=== PATIENT | female | born 1965 | race Caucasian/White ===

== ENCOUNTER → 2024-01-11 14:30 | Outpatient (BNVA) | payer MEDICAID, SELFPAY | PROVIDERS: Visit Provider Nurse Practitioner | DX: M25.512 Pain in left shoulder (principal); I89.8 Other specified noninfective disorders of lymphatic vessels and lymph nodes | CPT/HCPCS: 73030 ==

== ENCOUNTER → 2024-01-13 13:06 | Outpatient (BNVA) | payer MEDICAID, SELFPAY | PROVIDERS: PCP Family Medicine; Visit Provider Nurse Practitioner | DX: M16.0 Bilateral primary osteoarthritis of hip (principal) | CPT/HCPCS: 73523 ==

== ENCOUNTER → 2024-01-14 14:04 | Outpatient (BNVA) | payer MEDICAID, SELFPAY | PROVIDERS: PCP Family Medicine; Visit Provider Orthopaedic Surgery | DX: M54.9 Dorsalgia, unspecified (principal) | CPT/HCPCS: 72110 ==

== ENCOUNTER → 2024-01-25 14:29 | Outpatient (BNVA) | payer MEDICAID, SELFPAY | PROVIDERS: Visit Provider Nurse Practitioner | DX: M16.11 Unilateral primary osteoarthritis, right hip (principal) | CPT/HCPCS: 99214 ==

== ENCOUNTER 2024-01-26 06:30 | Outpatient (RCR) | payer MEDICAID, SELFPAY | END 2024-02-24 23:59 | disposition home or self-care (01) | LOC: MPT 06:30 | PROVIDERS: Visit Provider Orthopaedic Surgery | DX: M54.9 Dorsalgia, unspecified (principal); G89.29 Other chronic pain | CPT/HCPCS: 97110; 97161; 97530 ==

== ENCOUNTER 2024-02-08 14:13 | Outpatient (CLI) | payer MEDICAID, SELFPAY ==
--- NOTE | 2024-02-08 14:30 | MR_ITS ---
WS: [id number] MRI LUMBAR SPINE NONCONTRAST TECHNIQUE: Sagittal T1, T2 and STIR imaging. Axial T1 and T2 imaging. CLINICAL INFORMATION: lumbar pain COMPARISON: None. FINDINGS: Mild lumbar curve. No acute compression. No high-grade central canal stenosis. Disc bulging worse at L3-4. L1-L2: Mild disc bulging with slight effacement of the ventral thecal sac. Mild facet arthropathy. Fo ramen are patent. L2-L3: Mild annular bulging. Slight narrowing RIGHT subarticular recess. Mild facet arthropathy. Fora men are patent. L3-L4: Slight retrolisthesis. Central disc protrusion with mild to moderate central canal stenosis. I mpingement traversing L4 nerve roots. Moderate facet arthropathy with ligamentum flavum hypertrophy. Mild LEFT greater than RIGHT foraminal narrowing. Mild facet synovitis. L4-L5: Mild annular bulging. Slight narrowing of the subarticular recess bilaterally. Foramen are pat ent. Moderate facet arthropathy. Mild facet synovitis. L5-S1: Mild disc bulge with endplate ridging. Moderate facet arthropathy. Mild to moderate LEFT and n o significant RIGHT foraminal narrowing. Visualized pelvic bony structures: Normal. Paravertebral soft tissues: Normal. MR/MR lumbar spine wo con* [id number] IMPRESSION: 1. Mild lumbar curve. No acute compression. 2. Disc bulge with a shallow central protrusion and mild to moderate central c anal stenosis at L3-4. Impingement subarticular recess bilaterally. Mild LEFT L 3-4 foraminal narrowing. 3. Annular bulging L4-5 with slight impingement on the LEFT greater than RIGHT subarticular recess and traversing L4 nerve roots. 4. Mild to moderate LEFT L5-S1 bony foraminal narrowing. 5. Moderate facet arthropathy with facet synovitis L3-L4 and L4-L5.
== END 2024-02-08 14:14 | disposition home or self-care (01) ==
LOC: RAD 14:14
PROVIDERS: PCP Family Medicine; Visit Provider Orthopaedic Surgery
DX: M51.362 Other intervertebral disc degeneration, lumbar region with discogenic back pain and lower extremity pain (principal); M54.16 Radiculopathy, lumbar region; M99.61 Osseous and subluxation stenosis of intervertebral foramina of cervical region; M47.896 Other spondylosis, lumbar region
CPT/HCPCS: 72148

== ENCOUNTER 2024-02-08 15:07 | Outpatient (CLI) | payer MEDICAID, SELFPAY ==
[2024-02-08 15:41] LABS: Bilirubin Urine Negative (Negative); Blood Urine Negative (Negative); Glucose Urine UA Negative (Normal); Ketones Urine Negative (Negative); Leukocyte Esterase Urine Negative (Negative); Nitrate Urine Negative (Negative); Protein Urine Negative (Negative); Specific Gravity, Urine 1.006 (1.005-1.030); Urine Appearance Clear (CLEAR); Urine Color Yellow (Yellow); pH Urine 6.5 (5-7)
[2024-02-08 15:42] LABS: Basophils # 0.1 10^3/uL (0.0-0.1); Basophils % 0.6 %; Eosinophils # 0.1 10^3/uL (0.0-0.8); Eosinophils % 1.5 %; Hematocrit 41.6 % (36-47); Lymphocytes # 3.3 10^3/uL (0.8-4.8); Lymphocytes % 42.7 %; Mean Corpuscular HGB Conc 33.2 g/dL (30-55); Mean Corpuscular Hemoglobin 31.2 pg (27-33); Mean Corpuscular Volume 94.1 fl (85-98); Monocytes # 0.4 10^3/uL (0.2-0.9); Monocytes % 5.7 %; Neutrophils # 3.81 10^3/uL (1.8-7.7); Neutrophils % 49.1 %; Nucleated Red Blood Cells % 0 %; Platelet Count 241 10^3/cmm (157-399); Red Blood Count 4.42 10^6/uL (3.85-5.65); Red Cell Distribution Width 14.8 % (12.1-15.1); White Blood Count 7.76 10^3/uL (3.29-11.43)
[2024-02-08 15:47] LABS: Add Urine Microscopic? YES; Bacteria Urine None Seen /hpf; Hyaline Casts Urine 0-4 /lpf; RBC Urine 0-2 /hpf (0-2); Squamous Epithelial Cell Urine 0-5 /hpf (0-5); WBC Urine 0-5 /hpf (0-5)
[2024-02-08 16:27] LABS: Alanine Aminotransferase 11 U/L (0-33); Alkaline Phosphatase 111 U/L (35-105); Anion Gap 12.8 (5-19); Aspartate Amino Transferase 12 U/L (0-32); Blood Urea Nitrogen 8 mg/dL (6-20); Calcium 8.8 mg/dL (8.5-10.5); Carbon Dioxide 26 mmol/L (22-29); Chloride 104 mmol/L (98-107); Glomerular Filtration Rate 73.9 mL/min (90-130); Glucose 81 mg/dL (65-115); Osmolality Calculated 285 mOsm/kg (285-295); Potassium 3.8 mmol/L (3.5-5.1); Sodium 139 mmol/L (136-145); Total Bilirubin 0.3 mg/dL (0.15-1.2)
== END 2024-02-08 15:08 | disposition home or self-care (01) ==
LOC: LAB 15:09
PROVIDERS: PCP Family Medicine; Visit Provider Nurse Practitioner
DX: Z01.818 Encounter for other preprocedural examination (principal); M16.0 Bilateral primary osteoarthritis of hip
CPT/HCPCS: 36415; 80053; 81001; 85025

== ENCOUNTER → 2024-02-23 15:30 | Outpatient (BNVA) | payer MEDICAID, SELFPAY | PROVIDERS: PCP Family Medicine; Visit Provider Orthopaedic Surgery | DX: Z09 Encounter for follow-up examination after completed treatment for conditions other than malignant neoplasm (principal); M54.2 Cervicalgia; M54.50 Low back pain, unspecified | CPT/HCPCS: 72050; 99214 ==

== ENCOUNTER 2024-02-25 12:46 | Observation (INO) | payer MEDICAID, SELFPAY ==
[2024-02-25] VITALS (15 sets, daily range): BP systolic 115–147; BP diastolic 67–93; PULSE 75–103; RESP 13–18; TEMP 36.3–37.1; O2SAT 93–97; BMI 29.0
[2024-02-25] MEDS: sodium chloride 0.9% 1,000 ML 30 ML IV (11:20)
[2024-02-25] MEDS: acetaminophen 1,000 MG/100 ML PIGGYBACK 400 MG IV ×2 (11:20→18:06)
[2024-02-25] MEDS: CELEcoxib 200 mg Capsule 400 MG PO (11:23)
[2024-02-25] MEDS: gabapentin 300 mg Capsule PO (11:23)
--- NOTE | 2024-02-25 12:59 | ANES.PREANE2 ---
Pre-Anesthetic Assessment Height/Weight: Height 5 ft 6 in Weight 180 lb Temp Pulse Resp BP Pulse Ox O2 Del Method 98.7 F 103 H 16 119/84 97 Room Air 02/25/24 10:55 02/25/24 10:58 02/25/24 10:58 02/25/24 10:58 02/25/24 10:58 02/25/24 10:58 Preop Diagnosis: Hip arthritis Operation Date: 02/25/24 12:15 Proposed Procedures p Total Hip Arthroplasty(Right) - Gali Marks MD Was Beta Micheline taken within 24 hours: N/A Was Clonidine taken within 24 hours: N/A Last intake: Intake Last Liquid Date 02/25/24 Last Liquid Time 23:00 Last Solid Date 02/24/24 Last Solid Time 21:00 Social No alcohol and No tobacco Quit smoking 2-3 weeks ago Exam alert, oriented x 3, clear to auscultation bilaterally and regular rate & rhythm Airway Submandibular: within normal limits Cervical ROM: within normal limits Mallampati: Class III Dentition: other (Edentulous) Anesthetic Plan ASA status: 3 Anesthesia: General Other: No prior issues with anesthesia NPO since yesterday Prior smoker, quit 2-3 weeks ago. Uses chronic inhalers Takes CBD Gummies Labs 02/08/2024 reviewed acceptable for procedure Chronic low back issues. States she has spinal stenosis Plan for general anesthesia Medications/Allergies Home Medications Medication Instructions Recorded Confirmed Last Taken Type albuterol sulfate 90 mcg/actuation 2 puff inhalation Q6H PRN Wheezing 01/11/24 02/24/24 Unknown History aerosol inhaler celecoxib 200 mg capsule (Celebrex) 200 mg PO BID 01/11/24 02/24/24 02/17/24 History gabapentin 100 mg capsule 100 mg PO TID 01/11/24 02/24/24 02/24/24 History topiramate 100 mg capsule,extended 100 mg PO DAILY 01/11/24 02/24/24 Unknown History release 24 hr tramadol 50 mg tablet 100 mg PO Q8H PRN Pain 01/11/24 02/24/24 02/24/24 History venlafaxine 75 mg capsule,extended 75 mg PO DAILY 01/11/24 02/24/24 02/23/24 History release 24 hr cbd gummies 10 mg PO PRN PRN Pain 02/15/24 02/24/24 02/23/24 History methocarbamol 500 mg tablet 500 mg PO QID PRN Pain 02/15/24 02/24/24 02/24/24 History Allergies Allergy/AdvReac Type Severity Reaction Status Date / Time No Known Allergies Allergy Verified 02/24/24 09:00 Current Medications Generic Name Dose Route Start Last Admin Trade Name Freq PRN Reason Stop Dose Admin Sodium Chloride 1,000 mls @ 30 mls/hr 02/25/24 11:00 02/25/24 11:20 Sodium Chloride 0.9% IV 02/26/24 10:59 30 mls/hr .Q24H ALBERTO Administration PFSH Anesthesia Medical History Primary osteoarthritis of right hip Bilateral primary osteoarthritis of hip Primary osteoarthritis, left shoulder Social History Smoking and tobacco/nicotine status: current every day tobacco/nicotine user Data Anesthesia Cardiac Studies: No Data to Display
--- NOTE | 2024-02-25 13:39 | W.PM.OPSUD ---
Surgery/Procedure H&P Update DATE OF PROCEDURE: February 25, 2024 DATE H&P PERFORMED: 02/15/24 H&P UPDATE INFORMATION: I have reviewed H&P completed within last 30 days, I have examined patient prior to procedure, No changes to prior documentation and H&P is in [facility] EMR on date indicated PREOP DIAGNOSIS: Primary osteoarthritis right hip PLANNED PROCEDURE: Operation Date: 02/25/24 12:15 Proposed Procedures p Total Hip Arthroplasty(Right) - Gali Marks MD Related Problem List Diagnoses (1) Primary osteoarthritis of right hip:
[2024-02-25] MEDS: ceFAZolin 2,000 mg SDV 2000 MG IVP ×2 (13:55→21:51)
[2024-02-25] MEDS: tranexamic acid 1,000 mg/10mL SDV 1000 MG IV (14:18)
[2024-02-25] MEDS: ceFAZolin 1,000 mg SDV 1000 MG IRRIGATION (14:54)
[2024-02-25] MEDS: vancomycin 1,000 MG SDV 1000 MG XX (14:56)
--- NOTE | 2024-02-25 17:01 | P.OP_ITS ---
Operative Report Date of procedure: February 25, 2024 Pre-op diagnosis: Primary osteoarthritis right hip Post-op diagnosis: Primary osteoarthritis right hip Post-op findings: Severe degenerative osteoarthritis with large osteophytes on the femoral neck and also on the acetabulum Procedure done: Right total hip arthroplasty Implants: The Onur total hip system with a size 52 mm by E alpha code Trident II Tritanium acetabular shell with an MDM liner size 52 mm inner diameter by E alpha code.? A size 6 Accolade II 127? neck angle hip stem with a size 28 mm x +0 mm femoral head and a yazidism MDM X3 insert size 28 mm x 42E Specimens removed/disposition: Bone, disposed of Pathology: None Surgeon: Gali Marks MD Student Development Coordinator: Billie Sam, nurse practitioner, who services were required for positioning, exposure, manipulation, retraction, and closure Anesthesia: General (Intubated, ASA 3) Estimated blood loss (mL): 150 IV fluids (mL): 1,500 Urine output (mL): 200 Complications: None Findings: Large osteophytes both of the acetabulum and femoral head and neck with the significant deformity of the femoral head and loss of cartilage. The hip was stable to toe hang and external rotation. It was also stable to flexion of 90 degrees with internal rotation of 70 degrees and adduction of 30 degrees. Condition: stable Disposition: PACU (Then to floor for postoperative rehabilitation and pain management) Brief History: This 58-year-old woman presented to the office with complaints of bilateral hip pain. The patient is also being worked up for her lumbar spine, and she is seeing Dr. Mancia for this. She is having significant groin pain and limitations in activities of daily living secondary to her hip pain and functionality of the hip. For this reason, discussion was undertaken with the patient in the office. She wished to proceed with total hip arthroplasty as conservative measures had failed. Risks and complications were discussed with her. Consents were signed. Of note, the patient had previously been scheduled for total hip arthroplasty in [facility], but they advised her that not only which she have to quit smoking but her would as well. She wishes to proceed and has quit smoking at this time. Procedure: Patient was brought to the operating theater.? She was transferred to the operating room table and subsequently administered a general anesthesia, intubated, ASA 3.? Following administration of adequate anesthesia, the patient was placed in full lateral position and held in position with a pegboard.? The patient's right lower extremity was then prepped and draped in usual fashion utilizing DuraPrep.? It was draped free.? Following prepping and draping, a surgical pause was performed.? At the time of surgical pause, we identified the site and side of surgery.? We also identified the patient and preoperative surgical markings.?The patient's operative leg was compared to the opposite leg as a length comparison.? Confirmation was made of equipment availability.? Additionally, the patient's preoperative IV antibiotic, Ancef 2 g, and TXA administration was confirmed as well.? X-rays were also reviewed. Following the surgical pause, an incision was made centering over the patient's greater trochanter continuing proximally and distally as necessary to allow access to the hip joint.? Dissection continued through skin and soft tissues using a scalpel, and hemostasis was obtained using electrocautery. The tensor fascia yariel was identified and incised longitudinally.? Sciatic nerve was identified and protected throughout the surgical procedure.? A Charnley U retractor was placed after the tensor fascia yariel had been incised longitudinally, and the sciatic nerve had been identified.? The hip was internally rotated, and the piriformis muscle was identified and tagged. Piriformis muscle along with the remaining short external rotators were then incised from the posterior aspect of the hip joint.? These were retracted posteriorly.? The capsule was entered in a T-type fashion with the edges being tagged, and subsequently the hip was dislocated after removal of osteophytes posteriorly, inferiorly, and from the femoral head. The labrum was excised with further excision accomplished once the femoral head was removed.? Following hip dislocation, a femoral neck osteotomy was accomplished in the appropriate position.? The head was measured, but it was quite deformed.? We then evaluated the acetabulum. There were noted to be large osteophytes on the rim of the a cetabulum and also along the femoral neck. The femur was retracted anteriorly.? Soft tissues were retracted, and the labrum was removed.? Osteotome was utilized to remove very large osteophytes poste riorly and inferiorly as well as anteriorly. We then began reaming.? Once the femoral head was removed, there was noted to be significant loss of cartilage over the head with the previously noted deformity and cartilage loss within the acetabulum.? We reamed to a size 51 to allow for a size 52 acetabular shell. The acetabulum was impacted into position.? The MDM liner was then impacted into position with care being taken to assure it seated appropriately. It was noted that the acetabulum matched the bony anatomy following osteophyte removal.? The cup was noted to seat nicely and had good fixation upon impact. Attention was directed to the proximal femur.? The proximal femur was lifted out of the wound.? A canal finder was passed after the box chisel.? The reamer was used to lateralize.? We then began broaching. We broached sequentially and had excellent fit and fill with the size 6 broach. The 6 broach was noted to seat nicely. A trial reduction was accomplished with this initially with a size 5 broach, but once reduced, the broach was evaluated and felt to be loose within the femoral canal slightly. Therefore, we increased to a size 6 broach. Trial was accomplished with a +0 mm offset femoral head gave us the stability noted above, and leg lengths were felt to be equal. With the final construct as noted, we had the above-noted stabilities and appropriate leg length. Therefore, trial components were removed after the hip was dislocated. The size 6 Accolade II 127? neck angle stem was impacted into position without difficulty and onto this was placed a +0 mm x 28 mm femoral head which had been assembled into the MDM insert size 42E.? With a +0 mm femoral head, we had the above-noted stability.? The stem was noted to seat nicely prior to placement of the femoral head.? The wound was copiously irrigated with 20 mL of Betadine and 500 mL of normal saline mixed together.? Subsequently, we suctioned this out and irrigated the wound copiously with lactated Ringer's.? At this time, with all components in appropriate position, the hip was reduced.? Following reduction of the prosthesis once again, we confirmed the stability of the hip.? Leg lengths were also felt to be satisfactory. Being satisfied with the prosthesis, attention was directed to closure.? Closure was accomplished with 0 Vicryl in the capsular tissues.? Piriformis was reattached with 0 Vicryl as well.? Tensor fascia yariel was closed with 0 Vicryl in an interrupted fashion.? The subcutaneous tissues were closed with combination of 0 Vicryl and 2-0 Monocryl.? Vancomycin powder and a Gelfoam thrombin mixture was placed into the wound as well.? The skin was closed with a running 3-0 Monocryl strata fix followed by Dermabond Rachelle and Mattie. The patient was placed in an abduction pillow.? Patient was transferred off the operative bed and was brought to the recovery room in a satisfactory condition. She will be discharged to the floor for postoperative rehabilitation and pain management. There were no complications and no specimens. Related Problem List Diagnoses (1) Primary osteoarthritis of right hip:
--- NOTE | 2024-02-25 17:08 | XRR_ITS ---
PROCEDURE INFORMATION: Exam: XR Pelvis Exam date and time: 02/25/2024 5:36 PM Age: 58 years old Clinical indication: Screening exam; Post op right total hip arthroplasty; Prior surgery; Surgery date: Post-operative (0-2 days); Additional info: Status post right total hip arthroplasty, low ap pelvis TECHNIQUE: Imaging protocol: Radiologic exam of the pelvis. Views: 1 or 2 view. COMPARISON: CR XR hip BI m 5V wo/w pel* [id number] 01/13/2024 1:14 PM FINDINGS: Bones/joints: Patient has had a an interval right total hip arthroplasty. Hardware is well positioned. No acute fracture. No dislocation. Air in the right hip joint space, likely postsurgical in nature. Stable moderate degenerative changes at the left hip. Stable mild degenerative changes at the sacroiliac joints and degenerative changes of the lower lumbar spine. Soft tissues: Air in the soft tissues surrounding the right hip joint space, likely postsurgical in nature. No radiopaque foreign body. Intraperitoneal space: Redemonstration of a curvilinear radiopaque focus in the pelvis of uncertain etiology. Vasculature: Multiple calcifications in the pelvis most likely representing calcified phleboliths. XR/XR pelvis 1-2V* [id number] IMPRESSION: 1. Status post right total hip arthroplasty without evidence for complication. 2. Air in the right hip joint space and surrounding soft tissues, likely postsurgical in nature. 3. Redemonstration of a curvilinear radiopaque focus in the pelvis of uncertain etiology. 4. Incidental/nonacute findings are listed in the report.
--- NOTE | 2024-02-25 17:18 | SUR.PHASEI ---
1714 Bilat SCDs connected to pump and pump on and working
--- NOTE | 2024-02-25 17:52 | SUR.PHASEI ---
1745 Pt taken to room 258 on second floor. Handed pt off to Marian Tariq RN. VSS Pt temp 99.4 temporal. Marian looked at dressing which remained c/d/i. Marian accepted pt and voiced no concerns.
[2024-02-25] MEDS: TRAMadol 50 mg Tablet 100 MG PO (18:04)
[2024-02-25] MEDS: CELEcoxib 200 mg Capsule PO (18:04)
[2024-02-25] MEDS: calcium carbonate 500 mg Chew Tablet 1000 MG PO (18:06)
[2024-02-25] MEDS: sennosides-docusate Tablet 2 TAB PO (18:06)
[2024-02-25] MEDS: iron polysaccharide complex 150 mg Capsule PO (18:06)
[2024-02-25] MEDS: mupirocin oint 22 gm 1 APPLIC NASAL (18:06)
[2024-02-25] MEDS: sodium chloride 0.9% 1,000 ML 100 ML IV (18:07)
[2024-02-25] MEDS: chlorhexidine gluconate 0.12% Btl 473 mL 30 ML MUCOUS MEM (20:46)
[2024-02-25] MEDS: gabapentin 100 mg Capsule PO (20:46)
[2024-02-25] MEDS: tranexamic acid 1,000 MG/100 ML PREMIX 600 MG IV (21:51)
[2024-02-25] MEDS: oxyCODONE 5 mg IR Tab/Cap PO (21:57)
[2024-02-26] VITALS: BP 108/69; PULSE 96; RESP 19; TEMP 37; O2SAT 97
[2024-02-26] MEDS: acetaminophen 1,000 MG/100 ML PIGGYBACK 400 MG IV ×2 (00:52→11:54)
[2024-02-26] MEDS: TRAMadol 50 mg Tablet 100 MG PO ×2 (00:52→08:14)
[2024-02-26] MEDS: sodium chloride 0.9% 1,000 ML 100 ML IV (03:59)
[2024-02-26 05:33] LABS: Basophils % 0.2 %; Hematocrit 35.4 % (36-47); Lymphocytes # 2.7 10^3/uL (0.8-4.8); Lymphocytes % 21.7 %; Mean Corpuscular HGB Conc 32.2 g/dL (30-55); Mean Corpuscular Hemoglobin 30.8 pg (27-33); Mean Corpuscular Volume 95.7 fl (85-98); Mean Platelet Volume 9.4 fL (7.4-10.4); Monocytes # 0.7 10^3/uL (0.2-0.9); Monocytes % 6.1 %; Neutrophils # 8.73 10^3/uL (1.8-7.7); Neutrophils % 71.6 %; Nucleated Red Blood Cells % 0 %; Platelet Count 235 10^3/cmm (157-399); Red Cell Distribution Width 14.6 % (12.1-15.1); White Blood Count 12.19 10^3/uL (3.29-11.43)
[2024-02-26 05:53] LABS: Anion Gap 14.2 (5-19); Blood Urea Nitrogen 8 mg/dL (6-20); Carbon Dioxide 23 mmol/L (22-29); Chloride 107 mmol/L (98-107); Creatinine Clr Calc Pharmacy 99.1776; Glomerular Filtration Rate 86.2 mL/min (90-130); Glucose 107 mg/dL (65-115); Osmolality Calculated 289 mOsm/kg (285-295); Potassium 4.2 mmol/L (3.5-5.1); Sodium 140 mmol/L (136-145)
[2024-02-26] MEDS: ceFAZolin 2,000 mg SDV 2000 MG IVP (05:59)
[2024-02-26 08:00] VITALS: BP 122/78; PULSE 92; RESP 18; TEMP 36.8; O2SAT 92
[2024-02-26] MEDS: gabapentin 100 mg Capsule PO (08:14)
[2024-02-26] MEDS: sennosides-docusate Tablet 2 TAB PO (08:14)
[2024-02-26] MEDS: cholecalciferol (vitamin D3) 1,000 unit Tablet 1000 UNIT PO (08:14)
[2024-02-26] MEDS: iron polysaccharide complex 150 mg Capsule PO (08:15)
[2024-02-26] MEDS: methocarbamol 500 mg Tablet PO (08:15)
[2024-02-26] MEDS: aspirin 325 mg EC Tablet PO (08:16)
[2024-02-26] MEDS: multivitamin therapeutic Tablet 1 TAB PO (08:16)
[2024-02-26] MEDS: venlafaxine ER (24HR) 75 mg Capsule PO (08:16)
[2024-02-26] MEDS: chlorhexidine gluconate 0.12% Btl 473 mL 30 ML MUCOUS MEM ×2 (08:16→13:38)
[2024-02-26] MEDS: CELEcoxib 200 mg Capsule PO (08:16)
--- NOTE | 2024-02-26 08:34 | PC.NURSE ---
patient given tramadol for a pain level of 8/10 for postop hip pain
[2024-02-26 11:47] VITALS: BP 113/73; PULSE 103; RESP 18; TEMP 36.7; O2SAT 94
[2024-02-26] MEDS: mupirocin oint 22 gm 1 APPLIC NASAL (11:55)
[2024-02-26 11:59] VITALS: RESP 18
[2024-02-26] MEDS: oxyCODONE 5 mg IR Tab/Cap PO (11:59)
--- NOTE | 2024-02-26 12:58 | PC.CHAP ---
Pastoral Care Encounter/Spiritual Assessment Type of Contact [] Declined domain architect visit [] Patient/Family/Request visit [] Outpatient visit [] Follow-up visit [] Physician referral [] Code/Alert [x] Routine visit [] Staff referral [] Actively dying [] Patient sleeping [] Family support [] [] Out of room [] Palliative care [] [] Receiving care in room [] Pre-surgical visit [] Trauma [] Long length of stay [] ICU visit [] Other: Relational/Emotional Strength [x] Patient feels connected with others/family/visitors/staff [] Distress [] Loneliness/isolation [] Abandonment Spirituality of Patient [x] Person of [place] [x] Attends [employer] of their [place] [x] Believes in Prayer [x] Reads Bible or Buddhist materials [] There are Spiritual issues to be addressed Bushwalking Guide Interventions [x] Prayer [x] Active listening [x] Non-anxious presence [x] Spiritual/emotional support [] Crisis/trauma care [] Spiritual counseling [] Bereavement support [] Provided bereavement packet [] Provided Bible/devotional materials [] Provided toy/stuffed animal, coloring book to patient or family member [] Provided Communion [] Anointing/[place] [] Salvation [] Completed spiritual assessment [] Other: Impact on Illness or Injury [] Angry [] Fearful [] Anxious [] Often cries [] Exhaustion [] Unable to work [] Unable to attend mu-ism [] Unable to walk/stand [] Unable to read [] Unable to drive [] Unable to eat/drink [] Unable to sleep [] Unable to be with family [] Patient intubated [] Other: Summary Vol. FF P+1 Time spent with patient 1hr
--- NOTE | 2024-02-26 14:54 | P.DS_ITS ---
Discharge Providers Date of Admission: 02/25/24 12:46 Date of Discharge: February 26, 2024 Attending Provider at Admission: Gali Marks MD Attending Provider at Discharge: Gali Marks MD Primary Care Provider: Ricardo Aly DO Diagnoses at Discharge Discharge Diagnosis (1) Primary osteoarthritis of right hip: Status: Chronic (2) History of total left hip arthroplasty: Status: Acute Permanent problem details: Date of procedure: February 25, 2024 Diagnosis: Primary osteoarthritis right hip Procedure done: Right total hip arthroplasty Implants: The [place] total hip system with a size 52 mm by E alpha code Trident II Tritanium acetabular shell with an MDM liner size 52 mm inner diameter by E alpha code. A size 6 Accolade II 127? neck angle hip stem with a size 28 mm x +0 mm femoral head and a sikh MDM X3 insert size 28 mm x 42E Reason for Visit Reason for Visit: M16.0 Brief History: This 58-year-old woman presented to the office with complaints of bilateral hip pain. The patient is also being worked up for her lumbar spine, and she is seeing Dr. Mancia for this. She is having significant groin pain and limitations in activities of daily living secondary to her hip pain and functionality of the hip. For this reason, discussion was undertaken with the patient in the office. She wished to proceed with total hip arthroplasty as conservative measures had failed. Risks and complications were discussed with her. Consents were signed. Of note, the patient had previously been scheduled for total hip arthroplasty in [facility], but they advised her that not only which she have to quit smoking but her would as well. She wishes to proceed and has quit smoking at this time. Hospital Course Hospital Course This 58-year-old woman was admitted following total hip arthroplasty. She did well with the procedure and did well postoperatively. On the first postoperative day, she had no evidence of DVT. She was working with physical therapy and was felt to be safe for discharge to home. Plans were made for this. Questions were answered. The patient was comfortable and therefore was discharged home to follow-up in the office as scheduled. Physical Exam Const: COMMON NORMALS: no acute distress, average body habitus, patient oriented x3 and alert GENERAL APPEARANCE: cooperative and comfortable ORIENTATION/CONSCIOUSNESS: Yes awake HENMT: COMMON NORMALS: normocephalic and atraumatic HEAD & SCALP: normocephalic and atraumatic Eye: GENERAL EYE: appearance normal, both eyes and all related structures Chest: COMMONS NORMALS: normal inspection of the chest Resp: COMMON NORMALS: normal respiratory effort EFFORT & INSPECTION: Yes able to speak in complete sentences and Yes symmetric chest movement Extremity: RIGHT LOWER EXTREMITY: Yes hip joint (Dressing dry and intact) Right hip: Yes inspection (No significant ecchymosis), Yes ROM (Not evaluated) and Yes neurovascular exam (Intact with no evidence of DVT) Neuro: COMMON NORMALS: patient oriented x3 SENSORIUM/ORIENTATION: Yes alert Psych: COMMON NORMALS: mental status grossly normal APPEARANCE: Yes grossly normal ATTITUDE: Yes calm and Yes engaged ATTENTION/CONCENTRATION: Yes attention grossly intact Skin: COMMON NORMALS: no rashes or lesions noted GENERAL SKIN EXAM: no rashes or lesions noted Urinary Catheter Management: Escobar: Cath Placed During This Visit: yes, but has since been removed by the nurse Reason for Continuing Indwelling Catheter: Perioperative Use in Selected Surgeries Urinary Catheter Date of Insertion: 02/25/24 Urinary Catheter Time of Insertion: 14:10 Date Urinary Catheter Removed: 02/26/24 Time Urinary Catheter Discontinued: 06:21 Discharge Data Studies Completed and Pending Completed Studies During Hospitalization Category Date Time Status XR pelvis 1-2V* [id number] Routine Exams 02/25/24 17:08 Completed Radiology Impressions Pelvis X-Ray 02/25/24 17:08 IMPRESSION: 1. Status post right total hip arthroplasty without evidence for complication. 2. Air in the right hip joint space and surrounding soft tissues, likely postsurgical in nature. 3. Redemonstration of a curvilinear radiopaque focus in the pelvis of uncertain etiology. 4. Incidental/nonacute findings are listed in the report. Laboratory Results WBC 12.19 10^3/uL (3.29-11.43) H 02/26/24 05:05 RBC 3.70 10^6/uL (3.85-5.65) L 02/26/24 05:05 Hgb 11.40 g/dL (11.27-16.99) 02/26/24 05:05 Hct 35.4 % (36-47) L 02/26/24 05:05 MCV 95.7 fl (85-98) 02/26/24 05:05 MCH 30.8 pg (27-33) 02/26/24 05:05 MCHC 32.2 g/dL (30-55) 02/26/24 05:05 RDW 14.6 % (12.1-15.1) 02/26/24 05:05 Plt Count 235 10^3/cmm (157-399) 02/26/24 05:05 MPV 9.4 fL (7.4-10.4) 02/26/24 05:05 Neut % (Auto) 71.6 % 02/26/24 05:05 Lymph % (Auto) 21.7 % 02/26/24 05:05 Fountain % (Auto) 6.1 % 02/26/24 05:05 Eos % (Auto) 0.0 % 02/26/24 05:05 Baso % (Auto) 0.2 % 02/26/24 05:05 Neut # (Auto) 8.73 10^3/uL (1.8-7.7) H 02/26/24 05:05 Lymph # (Auto) 2.7 10^3/uL (0.8-4.8) 02/26/24 05:05 Fountain # (Auto) 0.7 10^3/uL (0.2-0.9) 02/26/24 05:05 Eos # (Auto) 0.0 10^3/uL (0.0-0.8) 02/26/24 05:05 Baso # (Auto) 0.0 10^3/uL (0.0-0.1) 02/26/24 05:05 Nucleated RBC % (auto) 0 % 02/26/24 05:05 Nucleated RBCs # 0.0 /100WBC 02/26/24 05:05 Sodium 140 mmol/L (136-145) 02/26/24 05:05 Potassium 4.2 mmol/L (3.5-5.1) 02/26/24 05:05 Chloride 107 mmol/L (98-107) 02/26/24 05:05 Carbon Dioxide 23 mmol/L (22-29) 02/26/24 05:05 Anion Gap 14.2 (5-19) 02/26/24 05:05 BUN 8 mg/dL (6-20) 02/26/24 05:05 Creatinine 0.7 mg/dL (0.5-0.9) 02/26/24 05:05 GFR Calculation 86.2 mL/min (90-130) L 02/26/24 05:05 Glucose 107 mg/dL (65-115) 02/26/24 05:05 Calculated Osmolality 289 mOsm/kg (285-295) 02/26/24 05:05 Calcium 8.0 mg/dL (8.5-10.5) L 02/26/24 05:05 Vitals Last Vital Signs Temp 98.1 F 02/26/24 11:47 Pulse 103 H 02/26/24 11:47 Resp 18 02/26/24 11:59 BP 113/73 02/26/24 11:47 Pulse Ox 94 02/26/24 11:47 O2 Del Method Room Air 02/26/24 11:47 Discharge Plan Discharge Patient Disposition: Home Condition: Stable Prescriptions: New acetaminophen 500 mg Tablet 1,000 mg PO Q8H 15 Days Qty: 90 0RF aspirin 325 mg Tablet,Delayed Release (Dr/Ec) 325 mg PO DAILY 30 Days Qty: 30 0RF tramadol 50 mg tablet 50 - 100 mg PO Q8H PRN (Reason: pain) Qty: 60 0RF tramadol 50 mg Tablet 100 mg PO Q8H PRN (Reason: Pain) 7 Days Qty: 60 0RF Continued topiramate 100 mg capsule,extended release 24hr 100 mg PO DAILY venlafaxine 75 mg capsule,extended release 24hr 75 mg PO DAILY gabapentin 100 mg capsule 100 mg PO TID albuterol sulfate 90 mcg/actuation HFA aerosol inhaler 2 puff inhalation Q6H PRN (Reason: Wheezing) cbd gummies 10 mg PO PRN PRN (Reason: Pain) methocarbamol 500 mg tablet 500 mg PO QID PRN (Reason: Pain) Changed celecoxib [Celebrex] 200 mg capsule 200 mg PO 1XD 30 Days Qty: 30 0RF Discontinued tramadol 50 mg tablet 100 mg PO Q8H PRN (Reason: Pain) Discharge Orders: Discharge Order (Routine); Ordered 02/26/24 Ordered By: Gali Marks Other Ambulatory Orders: DME: [facility] (Order) Location: None Selected Ordered By: Gali Marks Referrals: Gali Marks MD [Physician] - (We have notified your physician's clinic of the need for a follow-up appointment to be scheduled. If you have not heard from them within the next 2 business days, please call them directly. ) Discharge Diet: Advance as tolerated and Usual diet Discharge Activity: Limit activity as instructed, Use walker/crutches as instructed and As per PT/OT instructions Patient Instructions: Tramadol (By mouth) (Ultram, Ultram ER, [place], Theratramadol-60, Qdolo), Celecoxib (By mouth), Acute Wound Care (DC), Precautions after Total Joint Replacement Surgery (DC), Opioid Safety, Post Anesthesia Care Activity Restrictions/Additional Instructions: Posterior hip precautions. You may weight-bear as tolerated. Do the home exercise program as instructed by physical therapy. Keep your wound covered with a dressing that is in place now unless it begins to leak at which time it may be removed. You may shower, but do not soak your hip in water such as a bathtub, pool, river, or chance. Discharge Attestations Time Spent in Discharge Care*: greater than 30 min Specific Discharge Activities: educating patient, educating and/or supporting family/caregiver, documenting/other paperwork and evaluating patient/reviewing data Quality Metrics Clinical Quality Measures [ No reported AMI, CVA or VTE this stay] Coding Level of Care Code Acute Code for Chg Fwd Diagnoses Primary osteoarthritis of right hip M16.11 History of total left hip arthroplasty Z96.642
[2024-02-26 15:26] VITALS: BP 101/67; PULSE 90; RESP 18; TEMP 36.8; O2SAT 93
[2024-02-26 16:16] VITALS: BP 111/79; PULSE 81; RESP 19; TEMP 36.8; O2SAT 95
== END 2024-02-26 13:51 | disposition home or self-care (01) ==
LOC: MEDSURG 12:46
PROVIDERS: Admitting Provider Specialist; PCP Family Medicine; Visit Provider Specialist
PROC: (CPT 27130; principal; 2024-02-25 12:15)
DX: M16.11 Unilateral primary osteoarthritis, right hip (principal); F17.200 Nicotine dependence, unspecified, uncomplicated
CPT/HCPCS: 27130; 51702; 72170; 80048; 85025; 97116; 97161; 97165; 97530; C1776; G0378; J0131; J0690; J1100; J1171; J2250; J2405; J2704; J2710; J3010; J3370; J3490; J7030

== ENCOUNTER → 2024-03-09 14:11 | Outpatient (BNVA) | payer MEDICAID, SELFPAY | PROVIDERS: PCP Family Medicine; Visit Provider Specialist | DX: M16.11 Unilateral primary osteoarthritis, right hip (principal); Z96.641 Presence of right artificial hip joint | CPT/HCPCS: 73502; 99024 ==

== ENCOUNTER → 2024-05-04 09:00 | Outpatient (BNVA) | payer MEDICAID, SELFPAY | PROVIDERS: PCP Family Medicine; Visit Provider Anesthesiology Pain Medicine | DX: M47.816 Spondylosis without myelopathy or radiculopathy, lumbar region | CPT/HCPCS: 99204 ==

== ENCOUNTER → 2024-05-18 11:00 | Outpatient (BNVA) | payer MEDICAID, SELFPAY | PROVIDERS: PCP Family Medicine; Visit Provider Anesthesiology Pain Medicine | DX: M47.816 Spondylosis without myelopathy or radiculopathy, lumbar region (principal) | CPT/HCPCS: 64493; 64494; 64495; J3490 ==

== ENCOUNTER → 2024-05-31 09:39 | Outpatient (BNVA) | payer MEDICAID, SELFPAY | PROVIDERS: PCP Family Medicine; Visit Provider Anesthesiology Pain Medicine | DX: M47.816 Spondylosis without myelopathy or radiculopathy, lumbar region (principal) | CPT/HCPCS: 99214 ==

== ENCOUNTER → 2024-06-22 10:41 | Outpatient (BNVA) | payer MEDICAID, SELFPAY | PROVIDERS: PCP Family Medicine; Visit Provider Specialist | DX: Z98.890 Other specified postprocedural states (principal); Z96.641 Presence of right artificial hip joint; M47.816 Spondylosis without myelopathy or radiculopathy, lumbar region | CPT/HCPCS: 64635; 64636; 73502; 99213; J1010 ==

== ENCOUNTER → 2024-07-06 10:59 | Outpatient (BNVA) | payer MEDICAID, SELFPAY | PROVIDERS: PCP Family Medicine; Visit Provider Anesthesiology Pain Medicine | DX: M47.816 Spondylosis without myelopathy or radiculopathy, lumbar region (principal); M54.9 Dorsalgia, unspecified | CPT/HCPCS: 64635; 64636; J1010 ==

== ENCOUNTER → 2024-07-13 13:49 | Outpatient (BNVA) | payer MEDICAID, SELFPAY | PROVIDERS: PCP Family Medicine; Visit Provider Specialist | DX: M16.12 Unilateral primary osteoarthritis, left hip (principal) | CPT/HCPCS: 73502; 99214 ==

== ENCOUNTER → 2024-07-25 13:54 | Outpatient (BNVA) | payer MEDICAID, SELFPAY | PROVIDERS: PCP Family Medicine; Visit Provider Anesthesiology Pain Medicine | DX: M54.9 Dorsalgia, unspecified (principal); M47.816 Spondylosis without myelopathy or radiculopathy, lumbar region | CPT/HCPCS: 99214 ==

== ENCOUNTER 2024-07-25 14:31 | Outpatient (CLI) | payer MEDICAID, SELFPAY ==
[2024-07-25 15:40] LABS: Basophils # 0.1 10^3/uL (0.0-0.1); Basophils % 0.4 %; Eosinophils # 0.3 10^3/uL (0.0-0.8); Eosinophils % 2.5 %; Hematocrit 42.8 % (36-47); Lymphocytes # 4.6 10^3/uL (0.8-4.8); Lymphocytes % 38.6 %; Mean Corpuscular HGB Conc 32.2 g/dL (30-55); Mean Corpuscular Hemoglobin 29.1 pg (27-33); Mean Corpuscular Volume 90.3 fl (85-98); Mean Platelet Volume 9.2 fL (7.4-10.4); Monocytes # 0.9 10^3/uL (0.2-0.9); Monocytes % 7.2 %; Neutrophils # 6.02 10^3/uL (1.8-7.7); Neutrophils % 50.9 %; Nucleated Red Blood Cells % 0 %; Platelet Count 285 10^3/cmm (157-399); Red Blood Count 4.74 10^6/uL (3.85-5.65); Red Cell Distribution Width 15.6 % (12.1-15.1); White Blood Count 11.85 10^3/uL (3.29-11.43)
[2024-07-25 15:48] LABS: Add Urine Microscopic? YES; Bacteria Urine None Seen /hpf; Bilirubin Urine Neg (Negative); Blood Urine Trace (Negative); Glucose Urine UA Norm (Normal); Hyaline Casts Urine 0-4 /lpf; Ketones Urine Negative (Negative); Leukocyte Esterase Urine Trace (Negative); Nitrate Urine Negative (Negative); Protein Urine Neg (Negative); RBC Urine 0-2 /hpf (0-2); Squamous Epithelial Cell Urine 0-5 /hpf (0-5); Urine Appearance Clear (CLEAR); Urine Color Yellow (Yellow); Urobilinogen Urine Norm (Negative); WBC Urine 0-5 /hpf (0-5); pH Urine 5 (5-7)
[2024-07-25 15:49] LABS: Add Urine Culture? No
[2024-07-25 16:12] LABS: Alanine Aminotransferase 11 U/L (0-33); Albumin Level 3.9 g/dL (3.5-5.2); Alkaline Phosphatase 117 U/L (35-105); Anion Gap 14.9 (5-19); Aspartate Amino Transferase 13 U/L (0-32); Blood Urea Nitrogen 13 mg/dL (6-20); Calcium 9.3 mg/dL (8.5-10.5); Carbon Dioxide 27 mmol/L (22-29); Chloride 99 mmol/L (98-107); Globulin 3.2 g/dL (1.3-4.6); Glomerular Filtration Rate 85.9 mL/min (90-130); Glucose 114 mg/dL (65-115); Osmolality Calculated 285 mOsm/kg (285-295); Potassium 3.9 mmol/L (3.5-5.1); Sodium 137 mmol/L (136-145); Total Bilirubin 0.2 mg/dL (0.15-1.2); Total Protein 7.1 g/dL (6.6-8.7)
== END 2024-07-25 14:32 | disposition home or self-care (01) ==
LOC: LAB 14:32
PROVIDERS: PCP Family Medicine; Visit Provider Specialist
DX: Z01.818 Encounter for other preprocedural examination (principal)
CPT/HCPCS: 36415; 80053; 81001; 85025

== ENCOUNTER → 2024-08-22 12:32 | Outpatient (BNVA) | payer MEDICAID, SELFPAY | PROVIDERS: PCP Family Medicine; Visit Provider Family Medicine | DX: Z01.818 Encounter for other preprocedural examination (principal) | CPT/HCPCS: 80053; 81003; 85025 ==

== ENCOUNTER 2024-08-25 10:24 | Observation (INO) | payer MEDICAID, SELFPAY ==
[2024-08-25] VITALS (21 sets, daily range): BP systolic 110–132; BP diastolic 59–97; PULSE 77–100; RESP 13–18; TEMP 36.1–37.2; O2SAT 90–99; BMI 30.2
[2024-08-25] MEDS: sodium chloride 0.9% 1,000 ML 30 ML IV (06:27)
[2024-08-25] MEDS: acetaminophen 1,000 MG/100 ML PIGGYBACK 400 MG IV ×3 (06:28→22:28)
[2024-08-25] MEDS: gabapentin 300 mg Capsule PO (06:30)
[2024-08-25] MEDS: CELEcoxib 200 mg Capsule 400 MG PO (06:30)
[2024-08-25] MEDS: ceFAZolin 2,000 mg SDV 2000 MG IVP ×3 (06:58→22:28)
--- NOTE | 2024-08-25 06:58 | P.HPUD_ITS ---
Surgery/Procedure H&P Update DATE OF PROCEDURE: August 25, 2024 DATE H&P PERFORMED: 08/22/24 H&P UPDATE INFORMATION: I have reviewed H&P completed within last 30 days, I have examined patient prior to procedure, No changes to prior documentation, H&P is in [facility] EMR on date indicated and Risks and benefits of the procedure reviewed PLANNED PROCEDURE: Operation Date: 08/25/24 07:00 Proposed Procedures p Total Hip Arthroplasty(Left) - Gali Marks MD Related Problem List Diagnoses (1) Primary osteoarthritis of left hip:
--- NOTE | 2024-08-25 07:03 | ANES.PREANE2 ---
Pre-Anesthetic Assessment Height/Weight: Height 1.68 m Weight 84.822 kg Temp Pulse Resp BP Pulse Ox O2 Del Method 98.1 F 100 16 132/85 94 Room Air 08/25/24 05:59 08/25/24 05:59 08/25/24 05:59 08/25/24 05:59 08/25/24 05:59 08/25/24 06:06 Operation Date: 08/25/24 07:00 Proposed Procedures p Total Hip Arthroplasty(Left) - Gali Marks MD Familial anesthetic complications: None Was Beta Micheline taken within 24 hours: N/A Was Clonidine taken within 24 hours: N/A Last intake: Intake Last Liquid Date 08/24/24 Last Liquid Time 23:30 Last Solid Date 08/24/24 Last Solid Time 21:00 Social Tobacco and No alcohol CBD gummies Exam alert, oriented x 3, clear to auscultation bilaterally and regular rate & rhythm Airway Mallampati: Class II Dentition: other (no teeth) Musc/skel Lower Back Pain Anesthetic Plan ASA status: 2 Anesthesia: Regional (specify below) Risk of > 500 ml blood loss (7ml/kg in children): No Medications/Allergies Home Medications ?Medication ?Instructions ?Recorded ?Confirmed ?Last Taken ?Type albuterol sulfate 90 mcg/actuation 2 puff inhalation Q6H PRN Wheezing 01/11/24 08/24/24 07/18/24 History aerosol inhaler gabapentin 100 mg capsule 100 mg PO TID 01/11/24 08/24/24 08/23/24 History venlafaxine 75 mg capsule,extended 75 mg PO DAILY 01/11/24 08/24/24 08/23/24 History release 24 hr cbd gummies 10 mg PO PRN PRN Pain 02/15/24 08/22/24 02/23/24 History celecoxib 200 mg capsule (Celebrex) 200 mg PO 1XD 30 days #30 caps 02/26/24 08/24/24 08/17/24 Rx tramadol 50 mg tablet 50 - 100 mg (1 - 2 x 50 mg) PO Q8H 02/26/24 08/25/24 08/25/24 Rx PRN pain #60 tabs acetaminophen 500 mg tablet 500 mg PO Q6H PRN Mild Pain (Scale 08/22/24 08/24/24 08/24/24 History (Tylenol Extra Strength) Score 1-4) ibuprofen 200 mg capsule 400 mg PO Q6H PRN Pain, Mild 08/22/24 08/24/24 08/15/24 History Allergies Allergy/AdvReac Type Severity Reaction Status Date / Time No Known Allergies Allergy Verified 08/25/24 06:00 Current Medications Generic Name Dose Route Start Last Admin Trade Name Freq PRN Reason Stop Dose Admin Sodium Chloride 1,000 mls @ 30 mls/hr 08/25/24 06:00 08/25/24 06:27 Sodium Chloride 0.9% IV 08/26/24 05:59 30 mls/hr .Q24H ALBERTO Administration PFSH Anesthesia Medical History Primary osteoarthritis of right hip Bilateral primary osteoarthritis of hip Primary osteoarthritis, left shoulder Social History Smoking and tobacco/nicotine status: current every day tobacco/nicotine user
[2024-08-25] MEDS: tranexamic acid 1,000 mg/10mL SDV 1000 MG IV (07:39)
[2024-08-25] MEDS: VANCOMYCIN ADD-Vantage 1,000 MG VIAL 1000 MG XX (07:53)
[2024-08-25] MEDS: ceFAZolin 1,000 mg SDV 1000 MG IRRIGATION (07:54)
[2024-08-25] MEDS: BUPivacaine 0.5% INJ 10 mL 20 ML INJECTION (08:00)
[2024-08-25] MEDS: BUPivacaine liposome 13.3 mg/mL SDV 20 mL 266 MG INJECTION (08:00)
--- NOTE | 2024-08-25 10:22 | XR_ITS ---
WS: [id number] Pelvis, AP view, 08/25/2024 Clinical Data: Status post total hip arthroplasty Comparison: Pelvis and left hip, 07/13/2024 Findings: Bilateral hip arthroplasties are present. No periprosthetic fractures or loosening is seen. There is radiopaque material overlying the right pubic symphysis. There is a small suture in the pelvis. XR/XR pelvis 1-2V* [id number] Impression: Bilateral hip arthroplasties.
--- NOTE | 2024-08-25 10:25 | P.OP_ITS ---
Operative Report Date of procedure: August 25, 2024 Pre-op diagnosis: Primary osteoarthritis left hip Post-op diagnosis: Primary osteoarthritis left hip with calcar fracture during surgery Post-op findings: Severe degenerative osteoarthritis with large osteophytes and complete denudement of cartilage. Deformity of the femoral head. Procedure done: Left total hip arthroplasty with placement of Dall-Miles beaded cable and sleeve, cerclage wire. Implants: The [place] total hip system with a size 52 mm by E alpha code Trident II Tritanium acetabular shell with an MDM liner size 52 mm inner diameter by E alpha code.? A size 6 Accolade II 127? neck angle hip stem with a size 28 mm x +0 mm femoral head and a jehovah's witness MDM X3 insert size 28 mm x 42E Dall-Miles beaded cable and sleeve Specimens removed/disposition: Bone, disposed of Pathology: None Surgeon: Gali Marks MD Sales Effectiveness Manager: Billie Sam, nurse practitioner, who services were required for positioning, exposure, manipulation, retraction, and closure Anesthesia: Spinal (With MAC, ASA 2) Estimated blood loss (mL): 250 IV fluids (mL): 900 Urine output (mL): 150 Complications: None Findings: Significant degenerative osteoarthritis with complete denudement of femoral cartilage and acetabular cartilage. Large osteophytes. Following implantation, hip was stable to toe hang and external rotation. Hip was also stable at 90 degrees of flexion with 80 degrees of internal rotation and 20 degrees of adduction. Condition: stable Disposition: PACU (Then to the floor for postoperative rehabilitation and pain management under observation status) Brief History: This 59-year-old woman presented with complaints initially of bilateral hip pain. On February 25, 2024, the patient underwent right total hip arthroplasty uneventfully. She now presents for left total hip arthroplasty. While in the office, patient describes significant limitations in her activities of daily living. She wished to proceed with total hip arthroplasty. Risks and complications were again discussed with her. Consents were signed and questions were answered. She was seen the morning of surgery for confirmation and further discussion of any questions or concerns. Procedure: Patient was brought to the operating theater.? She was transferred to the operating room table and subsequently administered a spinal anesthesia with MAC, ASA 3.? Following administration of adequate anesthesia, the patient was placed in full lateral position and held in position with a pegboard.? The patient's left lower extremity was then prepped and draped in usual fashion utilizing DuraPrep.? It was draped free.? Following prepping and draping, a surgical pause was performed.? At the time of surgical pause, we identified the site and side of surgery.? We also identified the patient and preoperative surgical markings.?The patient's operative leg was compared to the opposite leg as a length comparison.? Confirmation was made of equipment availability.? Additionally, the patient's preoperative IV antibiotic, Ancef 2 g, and TXA administration was confirmed as well.? X-rays were also reviewed. Following the surgical pause, an incision was made centering over the patient's greater trochanter continuing proximally and distally as necessary to allow access to the hip joint.? Dissection continued through skin and soft tissues using a scalpel, and hemostasis was obtained using electrocautery. The tensor fascia yariel was identified and incised longitudinally.? Sciatic nerve was identified and protected throughout the surgical procedure.? A Charnley U retractor was placed after the tensor fascia yariel had been incised longitudinally, and the sciatic nerve had been identified.? The hip was internally rotated, and the piriformis muscle was identified and tagged. Piriformis muscle along with the remaining short external rotators were then incised from the posterior aspect of the hip joint.? These were retracted posteriorly.? The capsule was entered in a T-type fashion with the edges being tagged, and subsequently the hip was dislocated after removal of osteophytes posteriorly, inferiorly, and from the femoral head. The labrum was excised with further excision accomplished once the femoral head was removed.? Following hip dislocation, a femoral neck osteotomy was accomplished in the appropriate pos ition.? The head was measured, but it was quite deformed.? We then evaluated the acetabulum. There were noted to be large osteophytes on the rim of the acetabulum and also along the femoral neck. The femur was retracted anteriorly.? Soft tissues were retracted, and the labrum was removed.? Osteotome was utilized to remove very large osteophytes posteriorly and inferiorly as well as anteriorly. We then began reaming.? Once the femoral head was removed, there was noted to be significant loss of cartilage over the head with the previously noted deformity and cartilage loss within the acetabulum.? We reamed to a size 51 to allow for a size 52 acetabular shell. The acetabulum was impacted into position.? The MDM liner was then impacted into position with care being taken to assure it seated appropriately. It was noted that the acetabulum matched the bony anatomy following osteophyte removal.? The cup was noted to seat nicely and had good fixation upon impact. Attention was directed to the proximal femur.? The proximal femur was lifted out of the wound.? A canal finder was passed after the box chisel.? The reamer was used to lateralize.? We then began broaching. We broached sequentially and had excellent fit and fill with the size 6 broach. The 6 broach was noted to seat nicely. A trial reduction was accomplished with this initially with a size 5 broach, but once reduced, the broach was evaluated and felt to be loose within the femoral canal slightly. Therefore, we increased to a size 6 broach. Trial was accomplished with a +0 mm offset femoral head gave us the stability noted above, and leg lengths were felt to be equal. With the final construct as noted, we had the above-noted stabilities and appropriate leg length. Therefore, trial components were removed after the hip was dislocated. There was noted to be a calcar fracture that was addressed with a cerclage wire utilizing a Dall Miles cable. The cable was placed uneventfully and tightened appropriately. The size 6 Accolade II 127? neck angle stem was impacted into position without difficulty and onto this was placed a +0 mm x 28 mm femoral head which had been assembled into the MDM insert size 42E.? With a +0 mm femoral head, we had the above-noted stability.? The stem was noted to seat nicely prior to placement of the femoral head.? The wound was copiously irrigated with 20 mL of Betadine and 500 mL of normal saline mixed together.? Subsequently, we suctioned this out and irrigated the wound copiously with lactated Ringer's.? At this time, with all components in appropriate position, the hip was reduced.? Following reduction of the prosthesis once again, we confirmed the stability of the hip.? Leg lengths were also felt to be satisfactory. Being satisfied with the prosthesis, attention was directed to closure.? Closure was accomplished with 0 Vicryl in the capsular tissues.? Piriformis was reattached with 0 Vicryl as well.? Tensor fascia yariel was closed with 0 Vicryl in an interrupted fashion.? The subcutaneous tissues were closed with combination of 0 Vicryl and 2-0 STRATAFIX.? Vancomycin powder and a Gelfoam thrombin mixture was placed into the wound as well.? The skin was closed with a running 3-0 Monocryl strata fix followed by Dermabond Rachelle and Dorina. The patient was placed in an abduction pillow.? Patient was transferred off the operative bed and was brought to the recovery room in a satisfactory condition. She will be discharged to the floor for postoperative rehabilitation and pain management. There were no complications and no specimens. Related Problem List Diagnoses (1) Primary osteoarthritis of left hip:
--- NOTE | 2024-08-25 12:42 | ANE.PACU2 ---
Inpatient post-anesthesia follow up: Airway intact: Yes Vital signs: Temperature 97.0 F Pulse Rate 77 Respiratory Rate 15 Blood Pressure 110/77 Pulse Oximetry 92 Oxygen Delivery Me thod Room Air Oxygen Flow Rate 8 Fraction of Inspir ed Oxygen Hydration adequate: Yes Nausea and vomiting: No Pain level: 2 Mental status: Baseline
[2024-08-25] MEDS: oxyCODONE 5 mg IR Tab/Cap PO ×3 (12:56→20:49)
[2024-08-25] MEDS: chlorhexidine gluconate 0.12% Btl 473 mL 30 ML MUCOUS MEM ×3 (12:56→20:50)
[2024-08-25] MEDS: tranexamic acid 1,000 MG/100 ML PREMIX 600 MG IV (12:58)
[2024-08-25] MEDS: gabapentin 100 mg Capsule PO ×2 (14:42→20:50)
[2024-08-25] MEDS: calcium carbonate 500 mg Chew Tablet 1000 MG PO (17:35)
[2024-08-25] MEDS: mupirocin oint 22 gm 1 APPLIC NASAL (17:35)
[2024-08-25] MEDS: iron polysaccharide complex 150 mg Capsule PO (17:35)
[2024-08-25] MEDS: sennosides-docusate Tablet 2 TAB PO (17:35)
[2024-08-25] MEDS: CELEcoxib 200 mg Capsule PO (17:36)
[2024-08-26] VITALS (7 sets, daily range): BP systolic 112–135; BP diastolic 74–87; PULSE 79–113; RESP 16–18; TEMP 37.1–38.2; O2SAT 90–97; BMI 30.2
[2024-08-26] MEDS: oxyCODONE 5 mg IR Tab/Cap PO ×3 (03:03→13:59)
[2024-08-26 05:44] LABS: Basophils % 0.1 %; Eosinophils # 0.1 10^3/uL (0.0-0.8); Eosinophils % 0.4 %; Hematocrit 37.6 % (36-47); Lymphocytes # 2.1 10^3/uL (0.8-4.8); Lymphocytes % 15.4 %; Mean Corpuscular HGB Conc 33.2 g/dL (30-55); Mean Corpuscular Hemoglobin 29.8 pg (27-33); Mean Corpuscular Volume 89.5 fl (85-98); Mean Platelet Volume 9.2 fL (7.4-10.4); Monocytes # 1.1 10^3/uL (0.2-0.9); Monocytes % 7.9 %; Neutrophils # 10.41 10^3/uL (1.8-7.7); Neutrophils % 75.8 %; Nucleated Red Blood Cells % 0 %; Platelet Count 253 10^3/cmm (157-399); Red Cell Distribution Width 15.8 % (12.1-15.1); White Blood Count 13.73 10^3/uL (3.29-11.43)
[2024-08-26] MEDS: CELEcoxib 200 mg Capsule PO (06:00)
[2024-08-26] MEDS: acetaminophen 1,000 MG/100 ML PIGGYBACK 400 MG IV (06:00)
[2024-08-26] MEDS: ceFAZolin 2,000 mg SDV 2000 MG IVP (06:00)
[2024-08-26 06:01] LABS: Blood Urea Nitrogen 8 mg/dL (6-20); Calcium 8.6 mg/dL (8.5-10.5); Carbon Dioxide 24 mmol/L (22-29); Chloride 101 mmol/L (98-107); Creatinine Clr Calc Pharmacy 112.1473; Glomerular Filtration Rate 102.7 mL/min (90-130); Glucose 137 mg/dL (65-115); Osmolality Calculated 282 mOsm/kg (285-295); Sodium 136 mmol/L (136-145)
[2024-08-26] MEDS: iron polysaccharide complex 150 mg Capsule PO (08:44)
[2024-08-26] MEDS: gabapentin 100 mg Capsule PO (08:44)
[2024-08-26] MEDS: aspirin 325 mg EC Tablet PO (08:44)
[2024-08-26] MEDS: venlafaxine ER (24HR) 75 mg Capsule PO (08:44)
[2024-08-26] MEDS: multivitamin therapeutic Tablet 1 TAB PO (08:44)
[2024-08-26] MEDS: calcium carbonate 500 mg Chew Tablet 1000 MG PO (08:44)
[2024-08-26] MEDS: sennosides-docusate Tablet 2 TAB PO (08:44)
[2024-08-26] MEDS: cholecalciferol (vitamin D3) 1,000 unit Tablet 1000 UNIT PO (08:44)
[2024-08-26] MEDS: chlorhexidine gluconate 0.12% Btl 473 mL 30 ML MUCOUS MEM (08:46)
[2024-08-26] MEDS: mupirocin oint 22 gm 1 APPLIC NASAL (08:47)
--- NOTE | 2024-08-26 14:26 | P.DS_ITS ---
Discharge Providers Date of Admission: 08/25/24 10:24 Date of Discharge: August 26, 2024 Attending Provider at Admission: Gali Marks MD Attending Provider at Discharge: Gali Marks MD Primary Care Provider: Ricardo Aly DO Diagnoses at Discharge Discharge Diagnosis (1) Primary osteoarthritis of left hip: Status: Acute (2) Status post total hip replacement, left: Status: Acute Permanent problem details: Date of procedure: August 25, 2024 Diagnosis: Primary osteoarthritis left hip Diagnosis: Primary osteoarthritis left hip with calcar fracture during surgery Procedure done: Left total hip arthroplasty with placement of [place] beaded cable and sleeve, cerclage wire. Implants: The [place] total hip system with a size 52 mm by E alpha code Trident II Tritanium acetabular shell with an MDM liner size 52 mm inner diameter by E alpha code. A size 6 Accolade II 127? neck angle hip stem with a size 28 mm x +0 mm femoral head and a latter-day MDM X3 insert size 28 mm x 42E Reason for Visit Reason for Visit: M16.12 Brief History: This 59-year-old woman presented with complaints initially of bilateral hip pain. On February 25, 2024, the patient underwent right total hip arthroplasty uneventfully. She now presents for left total hip arthroplasty. While in the office, patient describes significant limitations in her activities of daily living. She wished to proceed with total hip arthroplasty. Risks and complications were again discussed with her. Consents were signed and questions were answered. She was seen the morning of surgery for confirmation and further discussion of any questions or concerns. Hospital Course Hospital Course This 59-year-old woman presented as noted above for same-day surgery for left total hip arthroplasty. This was well-tolerated. On the first postoperative day, the patient was seen in her room. She had worked with physical therapy and was felt to be safe for discharge to home. She was independent in her activities. She was comfortable. There is no evidence of DVT. Dressing was dry and intact. Physical Exam Const: COMMON NORMALS: no acute distress, average body habitus, patient oriented x3 and alert GENERAL APPEARANCE: cooperative and comfortable ORIENTATION/CONSCIOUSNESS: Yes awake HENMT: COMMON NORMALS: normocephalic and atraumatic HEAD & SCALP: normocephalic and atraumatic Eye: GENERAL EYE: appearance normal, both eyes and all related structures Chest: COMMONS NORMALS: normal inspection of the chest Resp: COMMON NORMALS: normal respiratory effort EFFORT & INSPECTION: Yes able to speak in complete sentences and Yes symmetric chest movement Extremity: LEFT LOWER EXTREMITY: Yes hip joint (Dressing dry and intact. Up in a chair) Left hip: Yes inspection (No significant ecchymosis), Yes palpation (No significant tenderness), Yes ROM (Not evaluated) and Yes neurovascular exam (Intact distally with no sign of DVT) Neuro: COMMON NORMALS: patient oriented x3 SENSORIUM/ORIENTATION: Yes alert Psych: COMMON NORMALS: mental status grossly normal APPEARANCE: Yes grossly normal ATTITUDE: Yes calm and Yes engaged ATTENTION/CONCENTRATION: Yes attention grossly intact Skin: COMMON NORMALS: no rashes or lesions noted GENERAL SKIN EXAM: no rashes or lesions noted Urinary Catheter Management: [place]: Cath Placed During This Visit: yes, but has since been removed by the nurse Urethral Indwelling: Yes Reason for Continuing Indwelling Catheter: Perioperative Use in Selected Surgeries Urinary Catheter Date of Insertion: 08/25/24 Urinary Catheter Time of Insertion: 07:10 Date Urinary Catheter Removed: 08/26/24 Time Urinary Catheter Discontinued: 06:00 Discharge Data Studies Completed and Pending Completed Studies During Hospitalization Category Date Time Status XR pelvis 1-2V* [id number] Routine Exams 08/25/24 10:22 Completed Radiology Impressions Pelvis X-Ray 08/25/24 10:22 Impression: Bilateral hip arthroplasties. Laboratory Results WBC 13.73 10^3/uL (3.29-11.43) H 08/26/24 04:56 RBC 4.20 10^6/uL (3.85-5.65) 08/26/24 04:56 Hgb 12.50 g/dL (11.27-16.99) 08/26/24 04:56 Hct 37.6 % (36-47) 08/26/24 04:56 MCV 89.5 fl (85-98) 08/26/24 04:56 MCH 29.8 pg (27-33) 08/26/24 04:56 MCHC 33.2 g/dL (30-55) 08/26/24 04:56 RDW 15.8 % (12.1-15.1) H 08/26/24 04:56 Plt Count 253 10^3/cmm (157-399) 08/26/24 04:56 MPV 9.2 fL (7.4-10.4) 08/26/24 04:56 Neut % (Auto) 75.8 % 08/26/24 04:56 Lymph % (Auto) 15.4 % 08/26/24 04:56 [place] % (Auto) 7.9 % 08/26/24 04:56 Eos % (Auto) 0.4 % 08/26/24 04:56 Baso % (Auto) 0.1 % 08/26/24 04:56 Neut # (Auto) 10.41 10^3/uL (1.8-7.7) H 08/26/24 04:56 Lymph # (Auto) 2.1 10^3/uL (0.8-4.8) 08/26/24 04:56 [place] # (Auto) 1.1 10^3/uL (0.2-0.9) H 08/26/24 04:56 Eos # (Auto) 0.1 10^3/uL (0.0-0.8) 08/26/24 04:56 Baso # (Auto) 0.0 10^3/uL (0.0-0.1) 08/26/24 04:56 Nucleated RBC % (auto) 0 % 08/26/24 04:56 Nucleated RBCs # 0.0 /100WBC 08/26/24 04:56 Sodium 136 mmol/L (136-145) 08/26/24 04:56 Potassium 4.0 mmol/L (3.5-5.1) 08/26/24 04:56 Chloride 101 mmol/L (98-107) 08/26/24 04:56 Carbon Dioxide 24 mmol/L (22-29) 08/26/24 04:56 Anion Gap 15.0 (5-19) 08/26/24 04:56 BUN 8 mg/dL (6-20) 08/26/24 04:56 Creatinine 0.6 mg/dL (0.5-0.9) 08/26/24 04:56 GFR Calculation 102.7 mL/min (90-130) 08/26/24 04:56 Glucose 137 mg/dL (65-115) H 08/26/24 04:56 Calculated Osmolality 282 mOsm/kg (285-295) L 08/26/24 04:56 Calcium 8.6 mg/dL (8.5-10.5) 08/26/24 04:56 Vitals Last Vital Signs Temp 99.6 F 08/26/24 12:00 Pulse 113 H 08/26/24 12:00 Resp 18 08/26/24 12:00 BP 112/74 08/26/24 12:00 Pulse Ox 94 08/26/24 12:00 O2 Del Method Room Air 08/26/24 12:00 O2 Flow Rate 1 08/26/24 00:52 Discharge Plan Discharge Patient Disposition: Home Health Service Condition: Stable Prescriptions: New aspirin 325 mg Tablet,Delayed Release (Dr/Ec) 325 mg PO DAILY 30 Days Qty: 30 0RF oxycodone 5 mg Tablet 5 mg PO Q4H PRN (Reason: Moderate To Severe Pain) 7 Days Qty: 40 0RF Continued venlafaxine 75 mg capsule,extended release 24hr 75 mg PO DAILY gabapentin 100 mg capsule 100 mg PO TID albuterol sulfate 90 mcg/actuation HFA aerosol inhaler 2 puff inhalation Q6H PRN (Reason: Wheezing) cbd gummies 10 mg PO PRN PRN (Reason: Pain) ibuprofen 200 mg capsule 400 mg PO Q6H PRN (Reason: Pain, Mild) acetaminophen [Tylenol Extra Strength] 500 mg tablet 500 mg PO Q6H PRN (Reason: Mild Pain (Scale Score 1-4)) tramadol 50 mg tablet 50 - 100 mg PO Q8H PRN (Reason: pain) Qty: 60 0RF celecoxib [Celebrex] 200 mg capsule 200 mg PO 1XD 30 Days Qty: 30 0RF Discharge Orders: Discharge Order (Routine); Ordered 08/26/24 Ordered By: Gali Marks Referrals: Gali Marks MD [Physician, Orthopedics] - 09/07/24 9:45 am Discharge Diet: Advance as tolerated and Usual diet Discharge Activity: Increase activity as tolerated, Limit activity as instructed, Use walker/crutches as instructed and As per PT/OT instructions Patient Instructions: Aspirin (By mouth), Oxycodone, Rapid Release (By mouth), Acute Wound Care (DC), Total Hip Replacement (DC), Opioid Safety, Post Anesthesia Care Activity Restrictions/Additional Instructions: Posterior precautions. You may shower, but do not submerge your hip in water. Ice to hip. Range of motion, strengthening, and ambulation per physical therapy instruction. Leave dressing in place unless it starts to lift up and leak at which point you may remove it. Otherwise, we will remove it in the office. Discharge Attestations Time Spent in Discharge Care*: greater than 30 min Specific Discharge Activities: educating patient, documenting/other paperwork and evaluating patient/reviewing data Quality Metrics Clinical Quality Measures [ No reported AMI, CVA or VTE this stay] Coding Level of Care Code Acute Code for Chg Fwd Diagnoses Primary osteoarthritis of left hip M16.12 Status post total hip replacement, left Z96.642
== END 2024-08-26 16:00 | disposition home health service (06) ==
LOC: MEDSURG 10:25
PROVIDERS: Admitting Provider Specialist; PCP Family Medicine; Visit Provider Specialist
PROC: (CPT 27130; principal; 2024-08-25 07:00)
DX: M16.12 Unilateral primary osteoarthritis, left hip (principal); F17.200 Nicotine dependence, unspecified, uncomplicated; M25.752 Osteophyte, left hip; Q65.89 Other specified congenital deformities of hip; Z96.641 Presence of right artificial hip joint
CPT/HCPCS: 27130; 36415; 51702; 72170; 80048; 85025; 97110; 97116; 97161; 97165; A4216; C1713; C1776; G0378; J0131; J0666; J0690; J2250; J2371; J2405; J2704; J3010; J3370; J3490; J7030; J9999

== ENCOUNTER → 2024-09-07 09:44 | Outpatient (BNVA) | payer MEDICAID, SELFPAY | PROVIDERS: PCP Family Medicine; Visit Provider Specialist | DX: Z98.890 Other specified postprocedural states (principal); Z96.642 Presence of left artificial hip joint | CPT/HCPCS: 73502; 99024 ==

== ENCOUNTER → 2024-10-19 10:16 | Outpatient (BNVA) | payer MEDICAID, SELFPAY | PROVIDERS: PCP Family Medicine; Visit Provider Specialist | DX: Z98.890 Other specified postprocedural states (principal); Z96.642 Presence of left artificial hip joint | CPT/HCPCS: 73502; 99024 ==

== ENCOUNTER → 2024-11-04 09:56 | Outpatient (BNVA) | payer MEDICAID, SELFPAY | PROVIDERS: PCP Family Medicine; Visit Provider Nurse Practitioner | DX: M19.012 Primary osteoarthritis, left shoulder (principal); Z71.89 Other specified counseling | CPT/HCPCS: 20610; 99213; J1100; J2795; J3301; J9999 ==

== ENCOUNTER → 2025-01-30 13:56 | Outpatient (BNVA) | payer MEDICAID, SELFPAY | PROVIDERS: PCP Family Medicine; Visit Provider Anesthesiology Pain Medicine | DX: M47.816 Spondylosis without myelopathy or radiculopathy, lumbar region (principal) | CPT/HCPCS: 99214 ==

== ENCOUNTER → 2025-03-06 13:52 | Outpatient (BNVA) | payer MEDICAID, SELFPAY | PROVIDERS: PCP Family Medicine; Visit Provider Specialist | DX: Z47.89 Encounter for other orthopedic aftercare (principal); Z96.642 Presence of left artificial hip joint; Z96.641 Presence of right artificial hip joint | CPT/HCPCS: 73523 ==